=== PATIENT | female | born 1970 | race Two or more races ===

== ENCOUNTER 2018-08-06 15:33 | Emergency (ER) | payer MEDICAID ==
[~2018-08-06] VITALS: Ht 160 cm; Wt 77.1 kg
[2018-08-06 16:18] LABS: Basophils # (auto) 0.1 uL; Basophils % (auto) 0.7 % (0.0-2.0); Eosinophils # (auto) 0.3 uL; Eosinophils % (auto) 3.8 % (0.0-7.0); Hematocrit 49.1 % (36.0-46.0); Hemoglobin 16.5 g/dL (12.2-16.2); Lymphocytes # (auto) 2.3 uL; Lymphocytes % (auto) 30.7 % (10.0-50.0); Mean Corpuscular Hemoglobin 30.2 pg (28.0-32.0); Mean Corpuscular Hgb Conc. 33.5 g/dL (32.0-36.0); Monocytes # (auto) 0.5 uL; Monocytes % (auto) 6.4 % (0.0-12.0); Neutrophils # (auto) 4.4 uL; Neutrophils % (auto) 58.4 % (37.0-80.0); Nucleated Red Blood Cells % 0.1 %; Platelet Count (auto) 281 10^3/uL (140-450); Red Blood Cells 5.46 10^6/uL (4.0-5.20); Red Cell Distribution Width 13.2 % (11.8-14.3); White Blood Cell 7.6 10^3/uL (4.4-10.8)
[2018-08-06 16:37] LABS: Albumin 3.8 g/dL (3.4-5.0); BUN/Creatinine Ratio 15.9; Bilirubin, Total 0.3 mg/dL (0.2-1.0); Calcium 8.6 mg/dL (8.5-10.1); Total Protein 7.7 g/dL (6.4-8.2)
[2018-08-06] MEDS ORDERED: POTASSIUM EFFERVESENT TAB 25 MEQ PO ONE (17:15)
[2018-08-06 17:35] VITALS: BP 153/96
== END 2018-08-06 17:57 | disposition home or self-care (01) ==
LOC: ER 15:33
DX: I10 Essential (primary) hypertension (principal); E11.9 Type 2 diabetes mellitus without complications
CPT/HCPCS: 36415; 70450; 80053; 85025; 93005

== ENCOUNTER 2019-11-18 10:51 | Emergency (ER) | payer MEDICAID ==
[~2019-11-18] VITALS: Ht 157.5 cm; Wt 64.0 kg
[2019-11-18] MEDS ORDERED: cloNIDine HCL 0.1 MG TAB ONE (11:04)
[2019-11-18] MEDS ORDERED: cloNIDine HCL 0.1 MG TAB PO ONE (11:15)
[2019-11-18 16:43] LABS: Urine Bacteria NONE SEEN /hpf (None Seen); Urine Blood Negative /uL (Negative); Urine Mucus FEW (None Seen); Urine Specific Gravity 1.034 (1.001-1.035); Urine WBC 21 /hpf (0 - 5)
[2019-11-18 17:00] VITALS: BP 159/72
== END 2019-11-18 17:18 | disposition home or self-care (01) ==
LOC: ER 10:51
DX: N39.0 Urinary tract infection, site not specified (principal); E11.9 Type 2 diabetes mellitus without complications; I10 Essential (primary) hypertension
CPT/HCPCS: 81001

== ENCOUNTER 2020-09-06 10:39 | Emergency (ER) | payer SELFPAY ==
[~2020-09-06] VITALS: Ht 152.4 cm; Wt 72.6 kg
[2020-09-06] MEDS ORDERED: ASPirin 81 mg TAB PO ONE (11:00)
[2020-09-06 11:14] LABS: Basophils # (auto) 0 10 ^3/uL (0-0.2); Basophils % (auto) 0.7 % (0.0-2.0); Eosinophils # (auto) 0.2 10 ^3/uL (0-0.8); Eosinophils % (auto) 3.1 % (0.0-7.0); Hematocrit 49.1 % (36.0-46.0); Hemoglobin 16.5 g/dL (12.2-16.2); Lymphocytes # (auto) 2.8 10 ^3/uL (0.4-5.4); Lymphocytes % (auto) 39.8 % (10.0-50.0); Mean Corpuscular Hemoglobin 29.5 pg (28.0-32.0); Mean Corpuscular Hgb Conc. 33.7 g/dL (32.0-36.0); Mean Corpuscular Volume 87.4 fL (80.0-100.0); Monocytes # (auto) 0.4 10 ^3/uL (0-1.3); Monocytes % (auto) 5.9 % (0.0-12.0); Neutrophils # (auto) 3.5 10 ^3/uL (1.6-8.6); Neutrophils % (auto) 50.5 % (37.0-80.0); Nucleated Red Blood Cells % 0.1 %; Platelet Count (auto) 290 10^3/uL (140-450); Red Blood Cells 5.61 10^6/uL (4.0-5.20); Red Cell Distribution Width 13.4 % (11.8-14.3); White Blood Cell 6.9 10^3/uL (4.4-10.8)
[2020-09-06 11:25] LABS: Albumin 3.9 g/dL (3.4-5.0); Anion Gap 8 (5-15); Blood Urea Nitrogen 11 mg/dL (7-18); Calcium 8.5 mg/dL (8.5-10.1); Carbon Dioxide 28 mmol/L (21-32); Chloride 103 mmol/L (98-107); Glucose 209 mg/dL (74-106); Potassium 3.1 mmol/L (3.5-5.1); Sodium 139 mmol/L (136-145)
[2020-09-06 11:31] LABS: Alanine Aminotransferase 28 U/L (13-56); Alkaline Phosphatase 108 U/L (45-117); Aspartate Aminotransferase 15 U/L (15-37); BUN/Creatinine Ratio 13.8; Bilirubin, Total 0.5 mg/dL (0.2-1.0); GFR African American 97 mL/min; GFR Non-African American 80 mL/min; Total Protein 7.8 g/dL (6.4-8.2)
[2020-09-06] MEDS ORDERED: cloNIDine HCL 0.1 MG TAB PO ONE (12:15)
[2020-09-06] MEDS ORDERED: cloNIDine HCL 0.1 MG TAB ONE (12:16)
[2020-09-06] MEDS ORDERED: POTASSIUM EFFERVESENT TAB 25 MEQ PO ONE (13:00)
[2020-09-06 16:20] VITALS: BP 94/57
== END 2020-09-06 16:39 | disposition home or self-care (01) ==
LOC: EDBD 10:39 → ER 10:39
DX: I16.0 Hypertensive urgency (principal); E11.9 Type 2 diabetes mellitus without complications; I10 Essential (primary) hypertension; Z90.710 Acquired absence of both cervix and uterus
CPT/HCPCS: 36415; 71045; 80053; 84484; 85025